=== PATIENT | female | born 1975 | race Caucasian/White ===

== ENCOUNTER 2018-09-20 20:35 | Emergency (ER) | payer OTHER ==
[~2018-09-20] VITALS: Ht 165.1 cm; Wt 61.2 kg
[2018-09-20 22:10] VITALS: BP 150/83
[2018-09-20] MEDS ORDERED: ONDANSETRON PF 4 MG/2 ML VIAL. IV ONE (22:30)
[2018-09-20] MEDS ORDERED: IV NORMAL SALINE 1000ML BAG 1,000 ML IV ONE (22:30)
[2018-09-20] MEDS ORDERED: fentaNYL PF VIAL 100 MCG/2 ML VIAL IV ONE (22:30)
--- NOTE | 2018-09-20 22:33 | PHYS DOC ---
Past Medical History Past Medical History: Anxiety, Kidney Stone Additional Past Surgical Histo: Kidney calculi removal Additional Information: 1 ppd Alcohol Use: Occasionally Drug Use: None Adult General Chief Complaint Chief Complaint: SWALLOWED FORIEGN BODY HPI HPI Patient is a 42 year old female presenting with swallowing chicken bone pain moderate increasing right neck able to breathe okay but cannot swallow saliva symptoms are limited by the patient's communication she does not want talk she says it hurts Review of Systems Review of Systems Limited by the patient's communication because she does not want talk. Current Medications Current Medications Current Medications Medications (Trade) Dose Ordered Sig/Ezio Start Time Stop Time Status Last Admin Dose Admin Fentanyl Citrate (Fentanyl 2ml Vial) 50 mcg 1X ONCE 09/20/18 22:30 09/20/18 22:31 DC Ketorolac Tromethamine (Toradol 30mg Vial) 30 mg 1X ONCE 09/20/18 23:00 09/20/18 23:01 Ondansetron HCl (Zofran) 4 mg 1X ONCE 09/20/18 22:30 09/20/18 22:31 DC Sodium Chloride 1,000 ml @ 1,000 mls/hr 1X ONCE 09/20/18 22:30 09/20/18 23:29 Allergies Allergies Allergies Coded Allergies Type Severity Reaction Last Updated Verified No Known Drug Allergies 09/20/18 No Physical Exam Physical Exam Constitutional: Well developed, well nourished, mild distress] HENT: Normocephalic, atraumatic, bilateral external ears normal, oropharynx moist, no oral exudates, nose normal. [] Eyes: PERRLA, EOMI, conjunctiva normal, no discharge. [] Neck: Normal range of motion, no tenderness, supple, no stridor. [] No swelling Pulmonary: Normal respiratory effort no increased work of breathing no obvious chest wall trauma Abdomen: Bowel sounds normal, soft, no tenderness, no masses, no pulsatile masses. [] Skin: Warm, dry, no erythema, no rash. [] Back: No tenderness, no CVA tenderness. [] Extremities: No tenderness, no cyanosis, no clubbing, ROM intact, no edema. [] Neurologic: Alert and oriented X 3, normal motor function, normal sensory function, no focal deficits noted. [] Psychologic: Affect normal, judgement normal, mood normal. [] Current Patient Data Vital Signs Vital Signs Date Time Temp Pulse Resp B/P (MAP) Pulse Ox O2 Delivery O2 Flow Rate FiO2 09/20/18 22:10 94 16 150/83 (105) 98 Room Air 09/20/18 21:10 98.2 98.2 EKG EKG [] Radiology/Procedures Radiology/Procedures [] Impressions: I see a chicken bone probably in the piriform sinus Course & Med Decision Making Course & Med Decision Making Pertinent Labs and Imaging studies reviewed. (See chart for details) []Spoke with Dr. Bautista he said because it is above the upper esophageal sphincter would recommend ENT but because we don't have ENT and he agrees with transfer. Discussed with Dr. Gardner ENT doctor at [facility] and was accepted this patient in transfer and requested an ER to ER transfer. I spoke with Dr. ORTIZ ER from ER who is ready to accept the patient as well I recommended transfer via ambulance for airway monitoring the patient says she absolutely will not do that. She says she know she can get over [facility] faster private car and she is reluctant for financial reasons as well. I did have to give her my strong recommendation to go by ambulance but she is of sound mind and she has a somebody with her who will drive her and I cannot convince her to go by ambulance. She'll be transferred via private vehicle [facility] Toradol was given for pain she declined an IV Dragon Disclaimer Dragon Disclaimer This electronic medical record was generated, in whole or in part, using a voice recognition dictation system. Departure Departure Impression: Primary Impression: Foreign body Disposition: 02 TRANSFER [facility] Condition: STABLE Additional Instructions: GO RIGHT TO ER AT [facility]. DR. GARDNER FOR ENT HAS ACCEPTED YOU. WE CLOUDED THE IMAGES OVER THERE. DR PAZ FROM ER KNOWS YOU'RE COMING. ANJALI QUINONES MD Sep 20, 2018 22:33
[2018-09-20] MEDS ORDERED: KETOROLAC 30 MG/ML VIAL. IM ONE (23:00)
--- NOTE | 2018-09-21 08:58 | RAD ---
Neck for soft tissues, 09/20/2018: HISTORY: Possible foreign body The epiglottis is normal in size and configuration. No airway narrowing is seen. There are cartilaginous calcifications in the laryngeal region. No radiopaque foreign body is identified. Mild marginal spurring is present at C5-6 and C6-7. IMPRESSION: No acute abnormality is detected. If symptoms persist, CT scanning may be useful for further evaluation. Electronically signed by: Kris Gumzan MD (09/21/2018 8:55 AM) [facility]
== END 2018-09-20 22:49 | disposition short-term general hospital (02) ==
LOC: ER 20:35
DX: T18.128A Food in esophagus causing other injury, initial encounter (principal); X58.XXXA Exposure to other specified factors, initial encounter; Y93.89 Activity, other specified; Y92.89 Other specified places as the place of occurrence of the external cause; Y99.8 Other external cause status
CPT/HCPCS: 70360; 99285

== ENCOUNTER → 2021-08-25 | Outpatient (CLI) | payer OTHER ==
[~2021-08-25] MED LIST: GADOTERATE 7.5 MMOL/15ML VIAL. IVP ONE; HYDR-2761 PO; TRAM50TA PO; ZOLP5TAB PO
--- NOTE | 2021-08-25 12:46 | KCIC ---
EXAM: Brain MRI without and with contrast; head MRA without contrast. HISTORY: Headache. Family history of brain aneurysm. TECHNIQUE: Multiplanar, multisequence magnetic resonance imaging of the brain was performed without a nd with contrast. Magnetic resonance angiography the head was performed without contrast. 3-dimension al images were obtained. COMPARISON: None. FINDINGS: There is no restricted diffusion to suggest acute or subacute infarction. There is no mass effect or midline shift. There is no susceptibility effect to suggest hemorrhage. There is a single tiny focus of T2/FLAIR hyperintensity within the right frontal subcortical white ma tter. There is a tiny linear enhancing lesion within the right parietal lobe near the vertex, consist ent with a developmental venous anomaly. The orbits are unremarkable. The paranasal sinuses and mastoid air cells are clear. There are normal flow voids within the cerebral vessels. There is cerebellar tonsillar ectopia extending approximately 4.5 mm inferior to the foramen magnum. The angiographic images demonstrate no significant stenosis. No convincing aneurysm is seen. The vert ebral arteries are codominant. IMPRESSION: 1. No acute intracranial finding. 2. Single tiny nonspecific focus of signal change within the right frontal white matter. The differen tial includes etiologies such as chronic small vessel disease and chronic migraine headaches. The kaylee ging appearance does not favor demyelinating disease. 3. Tiny right parietal developmental venous anomaly, an incidental finding of no clinical significanc e. 4. Cerebellar tonsillar ectopia. This is not clearly within limits to suggest a Chiari I malformation . 5. No evidence of hemodynamically significant stenosis or aneurysm. PQRS Compliance Statement - Stenosis calculations for CT, MR and conventional angiography are based u scott measurement of the distal ICA diameter in accordance with the NASCET methodology. Stenosis calcu lations for carotid ultrasound studies are derived from validated velocity criteria which are known t o correlate with the NASCET methodology. Electronically signed by: Yuko Griffith MD (08/25/2021 12:44 PM) [id number]
== END ==
LOC: KCIC MRI 07:57
PROVIDERS: ATTEND Family Medicine
DX: G44.53 Primary thunderclap headache (principal); I73.9 Peripheral vascular disease, unspecified
CPT/HCPCS: 70544; 70553; A9575